=== PATIENT | male | born 1990 | race Caucasian/White ===

== ENCOUNTER 2018-03-31 20:05 | Emergency (ER) | payer MEDICAID, OTHER ==
[2018-03-31] MEDS ORDERED: SULFAMET/TMP DS PREPACK#2 BTL TAKEHOME ONE (20:24)
[2018-03-31] MEDS ORDERED: CEPHALEXIN 500MG PREPACK#4 BTL TAKEHOME ONE (20:24)
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
[2018-03-31 21:09] VITALS: BP 129/76
== END 2018-03-31 21:01 | disposition home or self-care (01) ==
DX: L03.113 Cellulitis of right upper limb (principal)

== ENCOUNTER 2018-04-06 10:30 | Emergency (ER) | payer MEDICAID, OTHER ==
[2018-04-06] MEDS ORDERED: NS 1,000 ML IV ONE (11:13)
[2018-04-06] MEDS ORDERED: ACETAMINOPHEN 500 MG TAB PO ONE (11:14)
[2018-04-06 11:18] LABS: PLATELET COUNT 248 10^3/uL (150-400)
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
[2018-04-06] MEDS ORDERED: IBUPROFEN 600 MG TAB PO ONE (12:57)
[2018-04-06] MEDS ORDERED: DIAZEPAM 5 MG TAB PO ONE (12:57)
[2018-04-06 13:10] VITALS: BP 120/70
== END 2018-04-06 13:57 | disposition home or self-care (01) ==
DX: S33.5XXA Sprain of ligaments of lumbar spine, initial encounter (principal); R50.9 Fever, unspecified; M79.10 Myalgia, unspecified site; R11.0 Nausea; R51 Headache; E86.9 Volume depletion, unspecified